=== PATIENT | female | born 1955 | race Caucasian/White ===

== ENCOUNTER 2016-05-18 18:16 | Emergency (ER) | payer BC ==
--- NOTE | 2016-05-18 19:11 | EDM.PDOC ---
ED HPI GENERAL MEDICAL PROBLEM - General Chief Complaint: ENT Problem Stated Complaint: TOOTH PAIN/SWOLLEN RT SIDE FACE Time Seen by Provider: 05/18/16 19:07 Source of Information: Reports: Patient History Limitations: Reports: No limitations - History of Present Illness INITIAL COMMENTS - FREE TEXT/NARRATIVE: History of present illness: [60-year-old female coming in complaining of tooth pain in the right side of her face. Patient indicates she has had dental work in the past and has no acute trauma but now is having swelling and pain at that site] Review of systems: As per history of present illness and below otherwise all systems reviewed and negative. Past medical history: As per history of present illness and as reviewed below otherwise noncontributory. Surgical history: As per history of present illness and as reviewed below otherwise noncontributory. Social history: No reported history of drug or alcohol abuse. Family history: As per history of present illness and as reviewed below otherwise noncontributory. Physical exam: HEENT: Atraumatic, normocephalic, pupils reactive, negative for conjunctival pallor or scleral icterus, mucous membranes moist, throat clear, neck supple, nontender, trachea midline. Lungs: Clear to auscultation, breath sounds equal bilaterally, chest nontender. Heart: S1S2, regular, negative for clicks, rubs, or JVD. Abdomen: Soft, nondistended, nontender. Negative for masses or hepatosplenomegaly. Negative for costovertebral tenderness. Pelvis: Stable nontender. Genitourinary: Deferred. Rectal: Deferred. Extremities: Atraumatic, negative for cords or calf pain. Neurovascular unremarkable. Neuro: Awake, alert, oriented. Cranial nerves II through XII unremarkable. Cerebellum unremarkable. Motor and sensory unremarkable throughout. Exam nonfocal. Patient with some gum edema in the area of 17-19 with focus on tooth-18 Patient is returning to her home in [place] in approximately 2 weeks and are he has a dental appointment established with her normal dentist in her hometown Diagnostics: [] Therapeutics: [] Impression: [Dental abscess, dental caries] Plan: [] Definitive disposition and diagnosis as appropriate pending reevaluation and review of above. Right Lower Tooth/Teeth Pain Score (Numeric/FACES): 8 - Related Data Allergies Allergy/AdvReac Type Severity Reaction Status Date / Time No Known Allergies Allergy Verified 05/18/16 18:34 Home Meds: Home Meds Amoxicillin/Clavulanate K [Augmentin 875 MG/125 MG] 1 tab PO Q12HR #28 tablet [Rx] Past Medical History - Past Health History Medical/Surgical History: Denies Medical/Surgical History - Infectious Disease History Infectious Disease History: Reports: Chicken pox, Measles, Mumps Social & Family History - Family History Family Medical History: Noncontributory - Tobacco Use Smoking Status *Q: Current Every Day Smoker Years of Tobacco use: 20 Packs/Tins Daily: 0.5 - Caffeine Use Caffeine Use: Reports: Soda - Recreational Drug Use Recreational Drug Use: No ED ROS GENERAL - Review of Systems Review Of Systems: See Below (See history of present illness) ED EXAM, GENERAL - Physical Exam Exam: See Below (See history of present illness) Course - Vital Signs Last Recorded V/S: Last Vital Signs Temp 36.6 C 05/18/16 18:32 Pulse 76 05/18/16 18:32 Resp 16 05/18/16 18:32 BP 194/88 H 05/18/16 18:32 Pulse Ox 96 05/18/16 18:32 Departure - Departure Time of Disposition: 19:17 Disposition: Home, Self-Care 01 Condition: good Clinical Impression: Fracture of tooth Qualifiers: Encounter type: initial encounter Fracture type: closed Qualified Code(s): S02.5XXA - Fracture of tooth (traumatic), initial encounter for closed fracture Forms: ED Department Discharge Additional Instructions: The following information is given to patients seen in the emergency department who are being discharged to home. This information is to outline your options for follow-up care. We provide all patients seen in our emergency department with a follow-up referral. The need for follow-up, as well as the timing and circumstances, are variable depending upon the specifics of your emergency department visit. If you don't have a primary care physician on staff, we will provide you with a referral. We always advise you to contact your personal physician following an emergency department visit to inform them of the circumstance of the visit and for follow-up with them and/or the need for any referrals to a consulting specialist. The emergency department will also refer you to a specialist when appropriate. This referral assures that you have the opportunity for follow-up care with a specialist. All of these measure are taken in an effort to provide you with optimal care, which includes your follow-up. Under all circumstances we always encourage you to contact your private physician who remains a resource for coordinating your care. When calling for follow-up care, please make the office aware that this follow-up is from your recent emergency room visit. If for any reason you are refused follow-up, please contact the [facility] Emergency Department at and asked to speak to the emergency department charge nurse. Follow up with your dentist as discussed Take medication as directed Return to ED as needed as discussed
== END 2016-05-18 19:36 | disposition home or self-care (01) ==
LOC: MW.ED 18:16
CPT/HCPCS: 96361; 96374; 99282-25; 99283

== ENCOUNTER 2016-05-19 07:49 | Emergency (ER) | payer BC ==
--- NOTE | 2016-05-19 08:10 | EDM.PDOC ---
ED HPI GENERAL MEDICAL PROBLEM - General Chief Complaint: General Stated Complaint: TOOTH PAIN Time Seen by Provider: 05/19/16 07:57 - History of Present Illness INITIAL COMMENTS - FREE TEXT/NARRATIVE: HISTORY AND PHYSICAL: History of present illness: The patient is a 60-year-old female who was seen here yesterday for dental pain swelling and abscess and was started on Augmentin and Tylenol 3 with codeine. The patient states that she went home and when she woke this morning she had more swelling of her face and she felt like she had difficulty talking secondary to the swelling. Her tongue was not swollen and the swelling was only at the right jaw area. The patient had no headache fever chills chest pain or shortness of breath and had no neurosensory changes or weakness to her extremities. Patient denies any ear pain or posterior throat pain. Patient does state that she has pain to the right side of her jaw. Patient says that when she tries to drink she does feel like things are dribbling out. Patient was concerned she might be having allergic reaction to the Tylenol with codeine. She noticed no rashes or itching of her body Review of systems: As per history of present illness and below otherwise all systems reviewed and negative. Past medical history: As per history of present illness and as reviewed below otherwise noncontributory. Surgical history: As per history of present illness and as reviewed below otherwise noncontributory. Social history: No reported history of drug or alcohol abuse. Family history: As per history of present illness and as reviewed below otherwise noncontributory. Physical exam: General: Well-developed well-nourished female who is nontoxic and his vital signs were reviewed by me. She is visible facial swelling of the right mandible which is soft and non-crepitant and nonfluctuant. HEENT: Atraumatic, normocephalic, pupils reactive, negative for conjunctival pallor or scleral icterus, mucous membranes moist, throat clear, neck supple, nontender, trachea midline. There is shotty cervical adenopathy anteriorly no nuchal rigidity and no mastoid tenderness. TMs are slightly dull bilaterally, there is no discrete sinus tenderness, uvula is midline. There is gum swelling and tenderness that is reproducible on palpation in the same area that was recognized yesterday along the right premolar area. There is no fluctuance of the gum in this region. The gum swelling appears to be confluent with soft tissue swelling. There is no swelling of the tongue or oral pharyngeal structures and there is no facial rash Lungs: Clear to auscultation, breath sounds equal bilaterally, chest nontender. Heart: S1S2, regular, negative for clicks, rubs, or JVD. Abdomen: Soft, nondistended, nontender. NABS Genitourinary: Deferred. Rectal: Deferred. Extremities: Atraumatic, negative for cords or calf pain. Neurovascular unremarkable. Neuro: Awake, alert, oriented. Cranial nerves II through XII unremarkable. The patient has gross swelling or right mandible which causes a slight downward turn of her mouth on the right and she is unable to lift that with smile. She is able to raise eyebrows bilaterally and she is able to close eyes tightly. Cerebellum unremarkable. Motor and sensory unremarkable throughout. Exam nonfocal. patient has intact dorsi and plantar flexion 5/5 bilaterally ankles of the great toe and normal inversion and eversion of the feet. She is no drift any of the extremities and motor strength is 5/5 throughout all extremities. Gait is intact. Please note above exam with slight downward turn of the mouth on the right and difficulty raising that on smile. Skin: There is no evidence of any rashes and turgor is normal Diagnostics: [] Therapeutics: [] I discussed with the patient that there is swelling in the area of her mandible which may be causing some of her symptoms but she may be starting to have a partial Aranda's palsy. I will start treatment including prednisone and antivirals and have her continue taking her Augmentin, Tylenol with codeine for pain and using her dental balls. She is intact strength sensation and no drift any of her extremities but I cautioned her that if any changes start to occur that she is to return. Impression: Dental abscess right on treatment, rule out early Aranda's palsy Definitive disposition and diagnosis as appropriate pending reevaluation and review of above. Right Oral/Mouth Pain Score (Numeric/FACES): 8 - Related Data Allergies Allergy/AdvReac Type Severity Reaction Status Date / Time No Known Allergies Allergy Verified 05/18/16 18:34 Home Meds: Home Meds Amoxicillin/Clavulanate K [Augmentin 875 MG/125 MG] 1 tab PO Q12HR #28 tablet [Rx] Past Medical History - Past Health History Medical/Surgical History: Denies Medical/Surgical History - Infectious Disease History Infectious Disease History: Reports: Chicken pox, Measles Social & Family History - Family History Family Medical History: Noncontributory - Tobacco Use Smoking Status *Q: Current Every Day Smoker Years of Tobacco use: 20 Packs/Tins Daily: 1 - Caffeine Use Caffeine Use: Reports: Soda - Recreational Drug Use Recreational Drug Use: No ED ROS GENERAL - Review of Systems Review Of Systems: ROS reveals no pertinent complaints other than HPI. ED EXAM, GENERAL - Physical Exam Exam: See Below Course - Vital Signs Last Recorded V/S: Last Vital Signs Temp 36.6 C 05/19/16 07:58 Pulse 95 05/19/16 07:58 Resp 18 05/19/16 07:58 BP 137/88 05/19/16 07:58 Pulse Ox 97 05/19/16 07:58 Departure - Departure Time of Disposition: 08:10 Disposition: Home, Self-Care 01 Condition: good Clinical Impression: Dental abscess, Aranda's palsy Forms: ED Department Discharge Additional Instructions: The following information is given to patients seen in the emergency department who are being discharged to home. This information is to outline your options for follow-up care. We provide all patients seen in our emergency department with a follow-up referral. The need for follow-up, as well as the timing and circumstances, are variable depending upon the specifics of your emergency department visit. If you don't have a primary care physician on staff, we will provide you with a referral. We always advise you to contact your personal physician following an emergency department visit to inform them of the circumstance of the visit and for follow-up with them and/or the need for any referrals to a consulting specialist. The emergency department will also refer you to a specialist when appropriate. This referral assures that you have the opportunity for followup care with a specialist. All of these measure are taken in an effort to provide you with optimal care, which includes your followup. Under all circumstances we always encourage you to contact your private physician who remains a resource for coordinating your care. When calling for followup care, please make the office aware that this follow-up is from your recent emergency room visit. If for any reason you are refused follow-up, please contact the [facility] emergency department at and ask to speak to the emergency department charge nurse. [facility] Primary care- Internal Medicine and Family [place] [id number] [place] [id number] Please continue the medication you were prescribed yesterday, Augmentin and Tylenol #3 and dental balls. Please call and follow up with local dentist for definitive care and treatment. Please start new medication as prescribed and to you to monitor your symptoms and return to ER as needed and as discussed
== END 2016-05-19 08:33 | disposition home or self-care (01) ==
LOC: MW.ED 07:49
CPT/HCPCS: 99282; 99283